=== PATIENT | female | born 1985 | race African-American/Black ===

== ENCOUNTER 2019-02-25 05:38 | Inpatient (IN) ==
[2019-02-25] MEDS ORDERED: HYDROmorphone 2 MG/1 ML VIAL IV PRN ×2 (08:50→12:42)
[2019-02-25 09:13] LABS: Basophils % 0.3 % (0.0-0.8); Hematocrit 37.6 VOL% (35.7-47.0); Immature Granulocytes % 0.3 %; Immature Granulocytes Absolute 0.03 #; Lymphocytes # 1.3 10*3/uL (1.4-4.0); Lymphocytes % 12.1 % (21.3-54.2); Mean Corpuscular HGB Conc 31.9 GM/DL (32-36); Mean Corpuscular Volume 92.4 FL (87-102); Mean Platelet Volume 10.1 FL (9.6-12.0); Monocytes % 3.5 % (1.7-12.7); Neutrophils % 83.8 % (38.7-73.9); Platelet Count 238 T/CUMM (130-400); Red Blood Count 4.07 MC/CUMM (3.8-5.5); Red Cell Distribution Width 13.1 % (9.3-17.3); White Blood Count 10.3 T/CUMM (4-12)
[2019-02-25 09:43] LABS: Bilirubin,Total 1.2 MG/DL (0.2-1.0); Calcium 8.7 MG/DL (8.5-10.1); Osmolality,Calculated 278.3 MOS/KG (273-304); Risk Ratio 3.15; Total Protein 7.8 G/DL (6.4-8.3); VLDL CHOLESTEROL 10.2 MG/DL
[2019-02-25] MEDS: FAMOTIDINE 20 MG/2 ML VIAL IV SCH ×2 (09:55→20:19)
[2019-02-25] MEDS: SODIUM CHLORIDE 0.9% 1,000 ML IV SCH ×3 (09:55→22:08)
[2019-02-25] MEDS ORDERED: NICOTINE 21 MG/24 HR PATCH TRANSDERM PRN (14:17)
[2019-02-25] MEDS: CIPROFLOXACIN INJ 400 MG in PREMIX 1 EACH IV SCH (14:56)
[2019-02-25] MEDS: ONDANSETRON 4 MG/2 ML VIAL IV PRN ×2 (16:11→20:28)
[2019-02-25] MEDS: metroNIDAZOLE INJ 500 MG in PREMIX 1 EACH IV SCH (16:31)
[2019-02-25] MEDS: HYDROmorphone 2 MG/1 ML VIAL IV PRN ×2 (16:31→22:06)
[2019-02-26] MEDS: metroNIDAZOLE INJ 500 MG in PREMIX 1 EACH IV SCH ×4 (00:19→23:32)
[2019-02-26] MEDS: SODIUM CHLORIDE 0.9% 1,000 ML IV SCH ×3 (03:01→15:26)
[2019-02-26] MEDS: CIPROFLOXACIN INJ 400 MG in PREMIX 1 EACH IV SCH ×2 (03:02→18:33)
[2019-02-26 05:51] LABS: PT Patient Result 10.7 SECS
[2019-02-26 05:52] LABS: Basophils % 0.3 % (0.0-0.8); Immature Granulocytes % 0.3 %; Immature Granulocytes Absolute 0.02 #
[2019-02-26 06:14] LABS: Eosinophils % 0.5 % (0.00-10.9); Hematocrit 29.4 VOL% (35.7-47.0); Lymphocytes # 1.7 10*3/uL (1.4-4.0); Mean Corpuscular HGB Conc 32.7 GM/DL (32-36); Mean Corpuscular Volume 93.6 FL (87-102); Mean Platelet Volume 11.8 FL (9.6-12.0); Monocytes % 7.4 % (1.7-12.7); Neutrophils % 63.5 % (38.7-73.9); Red Cell Distribution Width 13.3 % (9.3-17.3)
[2019-02-26 06:16] LABS: Red Blood Count 3.14 MC/CUMM (3.8-5.5); White Blood Count 6.2 T/CUMM (4-12)
[2019-02-26 06:17] LABS: Hemoglobin 9.6 GM/DL (12.0-16.0); Platelet Count 174 T/CUMM (130-400)
[2019-02-26 06:19] LABS: Albumin 2.9 G/DL (3.4-5.0); Bilirubin,Total 1.3 MG/DL (0.2-1.0); Calcium 7.6 MG/DL (8.5-10.1); Osmolality,Calculated 277.3 MOS/KG (273-304); Total Protein 5.8 G/DL (6.4-8.3)
[2019-02-26] MEDS ORDERED: CLINDAMYCIN INJ 900 MG in PREMIX 1 EACH IV ONE (06:23)
[2019-02-26] MEDS: POTASSIUM CHLORIDE RIDER 10 MEQ in PREMIX 1 EACH IV SCH ×5 (07:08→15:27)
[2019-02-26] MEDS: HYDROmorphone 2 MG/1 ML VIAL IV PRN ×3 (07:42→10:39)
[2019-02-26] MEDS: FAMOTIDINE 20 MG/2 ML VIAL IV SCH ×3 (07:51→21:50)
[2019-02-26] MEDS ORDERED: LIDOCAINE 1%/EPI INJ 20 ML VIAL ONE (08:47)
[2019-02-26] MEDS ORDERED: TISSUE ADHESIVE 1 EACH APPLICATOR TOP ONE ×2 (08:47→09:53)
[2019-02-26] MEDS ORDERED: SUGAMMADEX 200 MG/2 ML VIAL IV ONE (09:40)
[2019-02-26] MEDS ORDERED: PROPOFOL 200 MG/20 ML VIAL IV ONE (10:06)
[2019-02-26] MEDS ORDERED: fentaNYL 100 MCG/2 ML VIAL ONE (10:06)
[2019-02-26] MEDS ORDERED: SEVOFLURANE 1 UNIT/15 MINUTE INH ONE (10:06)
[2019-02-26] MEDS ORDERED: ROCURONIUM 100 MG/10 ML VIAL IV ONE (10:07)
[2019-02-26] MEDS ORDERED: SODIUM CHLORIDE 0.9% 1,000 ML IV ONE (10:07)
[2019-02-26] MEDS ORDERED: SUCCINYLCHOLINE 200 MG/10 ML VIAL ONE (10:07)
[2019-02-26] MEDS ORDERED: MIDAZOLAM 2 MG/2 ML VIAL ONE (10:07)
[2019-02-26] MEDS ORDERED: ONDANSETRON 4 MG/2 ML VIAL ONE ×2 (10:07→10:25)
[2019-02-26] MEDS ORDERED: DEXAMETHASONE 4 MG/1 ML VIAL ONE (10:07)
[2019-02-26] MEDS ORDERED: ONDANSETRON 4 MG/2 ML VIAL IV PRN (10:22)
[2019-02-26] MEDS ORDERED: HYDROmorphone 2 MG/1 ML VIAL ONE (10:24)
[2019-02-26] MEDS: ONDANSETRON 4 MG/2 ML VIAL IV PRN (12:59)
[2019-02-26] MEDS ORDERED: PROMETHAZINE 25 MG/1 ML VIAL IM ONE (14:59)
[2019-02-26] MEDS: LACTATED RINGERS 1,000 ML IV SCH (15:26)
[2019-02-26] MEDS ORDERED: POTASSIUM CHLORIDE RIDER 10 MEQ in PREMIX 1 EACH IV PRN (16:30)
[2019-02-26] MEDS ORDERED: PROMETHAZINE 25 MG TABLET PO PRN (16:35)
[2019-02-26] MEDS: POTASSIUM CHLORIDE 20 MEQ TABLET PO PRN ×2 (21:49→23:32)
[2019-02-27] MEDS: CIPROFLOXACIN INJ 400 MG in PREMIX 1 EACH IV SCH (02:16)
[2019-02-27 06:13] LABS: Basophils % 0.1 % (0.0-0.8); Eosinophils % 0.3 % (0.00-10.9); Hematocrit 28.7 VOL% (35.7-47.0); Hemoglobin 9.4 GM/DL (12.0-16.0); Immature Granulocytes % 0.3 %; Immature Granulocytes Absolute 0.02 #; Lymphocytes # 1.8 10*3/uL (1.4-4.0); Lymphocytes % 24.7 % (21.3-54.2); Mean Corpuscular HGB Conc 32.8 GM/DL (32-36); Mean Corpuscular Volume 92.6 FL (87-102); Mean Platelet Volume 11.1 FL (9.6-12.0); Monocytes % 9.8 % (1.7-12.7); Neutrophils % 64.8 % (38.7-73.9); Platelet Count 177 T/CUMM (130-400); Red Cell Distribution Width 13.1 % (9.3-17.3); White Blood Count 7.1 T/CUMM (4-12)
[2019-02-27 06:48] LABS: Albumin 3.2 G/DL (3.4-5.0); Bilirubin,Total 0.6 MG/DL (0.2-1.0); Calcium 8.4 MG/DL (8.5-10.1); Total Protein 6.1 G/DL (6.4-8.3)
[2019-02-27] MEDS: metroNIDAZOLE INJ 500 MG in PREMIX 1 EACH IV SCH (09:08)
[2019-02-27] MEDS: FAMOTIDINE 20 MG/2 ML VIAL IV SCH (09:08)
[2019-02-27] MEDS: LACTATED RINGERS 1,000 ML IV SCH (09:09)
[2019-02-27 11:43] VITALS: BP 110/76
== END 2019-02-27 11:33 | disposition home or self-care (01) | DRG 418 ==
LOC: SUATTDRO 07:58 → N.3E 07:58
PROVIDERS: ADMIT Internal Medicine; ATTEND Internal Medicine
PROC: LAPCHOL (2019-02-26 09:00)